=== PATIENT | male | born 1980 | race Caucasian/White ===

== ENCOUNTER → 2017-01-21 | Outpatient (CLI) | payer BC ==
--- NOTE | 2017-01-21 15:33 | XR ---
EXAMINATION TYPE: XR chest 2V DATE OF EXAM: 01/21/2017 COMPARISON: NONE HISTORY: Cough TECHNIQUE: Frontal and lateral views of the chest are obtained. FINDINGS: There is no focal air space opacity, pleural effusion, or pneumothorax seen. The cardiac silhouette size is within normal limits. The osseous structures are intact. IMPRESSION: No acute cardiopulmonary process.
== END | disposition home or self-care (01) ==
LOC: RADXRMAIN 15:01
PROVIDERS: ATTEND Internal Medicine
DX: R05 Cough (principal)
CPT/HCPCS: 71020

== ENCOUNTER → 2024-07-26 | Outpatient (CLI) | payer BC ==
--- NOTE | 2024-07-26 09:17 | CT ---
EXAMINATION TYPE: CT chest wo con DATE OF EXAM: 07/26/2024 7:00 AM COMPARISON: 04/29/2022 . CLINICAL INDICATION: Male, 44 years old with history of E04.2 NONTOXIC MULTINODULAR GOITER; PH[facility], Chec kup from abnormal CT, prior in PACs TECHNIQUE: CT of the chest without IV contrast. Coronal and sagittal reconstructions performed. MIP w as performed on a separate workstation. CT DLP: 486 mGycm, Automated exposure control for dose reduction was used. FINDINGS: Heart normal size without pericardial effusion. No significant coronary artery calcifications. Aorta normal caliber with low takeoff of the left vertebral artery from the left artery. No thoracic lymphadenopathy by CT size criteria. Some minimal strandy atelectasis or scarring anterior lung bases Minimal emphysematous change. No consolidation or pleural effusion. A few 6 mm smaller pulmonary nodules remain unchanged from 04/29/2022, greater than 2 years, indicatin g a benign etiology. Visualized upper abdomen shows diminished attenuation of the hepatic parenchyma. Bones: Mild degenerative disc disease mid to lower thoracic spine. IMPRESSION: 1. COPD with minimal emphysema. 2. A few pulmonary nodules measuring up to 6 mm remain unchanged for greater than 2 years indicating a benign etiology. 3. At least moderate hepatic steatosis. Appropriate clinical management is advised. [facility], , 07/26/2024 9:15 AM
== END | disposition home or self-care (01) ==
LOC: RADCTMAIN 06:46
PROVIDERS: ATTEND Family Medicine
DX: E04.2 Nontoxic multinodular goiter (principal); J44.9 Chronic obstructive pulmonary disease, unspecified; J43.9 Emphysema, unspecified; K76.0 Fatty (change of) liver, not elsewhere classified; R91.8 Other nonspecific abnormal finding of lung field
CPT/HCPCS: 71250